=== PATIENT | female | born 1975 | race Caucasian/White ===

== ENCOUNTER 2020-01-07 04:46 | Emergency (ER) | payer MEDICARE, MEDICAID, SELFPAY ==
[2020-01-07 04:49] VITALS: BP 147/91; PULSE 68; RESP 20; TEMP 36.3; O2SAT 99
--- NOTE | 2020-01-07 04:55 | W.ED.GENAD ---
Discharge Plan Disposition Patient Disposition: HOME Condition: Good Discharge Details Chief Complaint: DentalOral Clinical Impression: Pain, dental Primary Care Provider: None,None ED Provider: Butch Lamb Home Meds and New Rx's Prescriptions: New penicillin V potassium 500 mg tablet 500 mg PO QID 10 Days Qty: 40 RF: 0 acetaminophen [Mapap Extra Strength] 500 MG tablet 1,000 mg PO Q6H 5 Days Qty: 60 RF: 0 ibuprofen [Motrin IB] 200 MG tablet 600 mg PO Q6H 5 Days Qty: 60 RF: 0 Continued venlafaxine 75 MG tablet 75 mg PO DAILY RF: 0 methylphenidate HCl [Ritalin] 10 MG tablet 10 mg PO BID RF: 0 ibuprofen 600 MG tablet 600 mg PO TID PRN PRN (Reason: Pain) Qty: 20 RF: 0 Discharge Instructions Instructions: Toothache (ED) Additional Instructions: At this time you have a tooth that broke secondary to an internal infection in the tooth. Please take the antibiotic as directed. Please take Tylenol and Motrin [id number] every 6 hours as prescribed to help with the inflammation. Please follow-up with a dentist as soon as possible to have the tooth pulled. If you notice any worsening of your symptoms, or any new symptoms such as vomiting, diarrhea, fever, chills, shortness of breath, chest pain, numbness, weakness, or fainting , please return immediately to the emergency department for reevaluation. Please follow up with your primary care provider as soon as possible for reassessment and reevaluation. As always, it was a pleasure participating in your medical care today. Medical Decision Making 44-year-old female presents for right lower dental pain. Patient states that she woke up and had significant pain in her right lower posterior molar. She grinds in her sleep and attributes it to fracturing her tooth in her sleep. She denies fever chills difficulty swallowing. No other complaints at this time. Patient was given a dental block in the right posterior space, she had good resolution of her symptoms. Will give penicillin for home antibiotic treatment, recommend Tylenol Motrin for close dental follow-up. Given dental list. I have extensively reviewed the treatment plan and discharge instructions with the patient. I have addressed all patient concerns at this time. The patient was made aware of what symptoms to monitor for that would warrant a return to the emergency department. Discussed the plan with the patient, they demonstrate verbal understanding and agreement with our assessment and plan at this time. HPI General Date/Time Provider Initiated Documentation: 01/07/20 04:47. HPI Narrative: 44-year-old female presents for right lower dental pain. Patient states that she woke up and had significant pain in her right lower posterior molar. She grinds in her sleep and attributes it to fracturing her tooth in her sleep. She denies fever chills difficulty swallowing. No other complaints at this time. Related Data Home Medications Medication Instructions Recorded Confirmed methylphenidate HCl [Ritalin] 10 mg PO BID 08/16/14 01/07/20 venlafaxine 75 mg PO DAILY 08/16/14 01/07/20 ibuprofen 600 mg PO TID PRN PRN #20 tablet 11/10/14 01/07/20 acetaminophen [Mapap Extra 1,000 mg PO Q6H 5 Days #60 tab 01/07/20 Strength] ibuprofen [Motrin Ib] 600 mg PO Q6H 5 Days #60 tab 01/07/20 penicillin V potassium 500 mg PO QID 10 Days #40 tab 01/07/20 Previous Rx's Medication Instructions Recorded ibuprofen 600 mg PO TID PRN PRN #20 tablet 11/10/14 acetaminophen [Mapap Extra 1,000 mg PO Q6H 5 Days #60 tab 01/07/20 Strength] ibuprofen [Motrin Ib] 600 mg PO Q6H 5 Days #60 tab 01/07/20 penicillin V potassium 500 mg PO QID 10 Days #40 tab 01/07/20 Allergies Allergy/AdvReac Type Severity Reaction Status Date / Time No Known Allergies Allergy Unverified 01/07/20 04:51 General Stated Complaint: DentalOral DREA: 4 Review of Systems All systems reviewed & are unremarkable except as noted in HPI and below PFSH Social History Smoking/Tobacco Use Status: Current every day Drug use: Never Do you feel safe at home: Yes Do you feel safe in your relationship?: Yes Exam Narrative Exam Narrative: 1.Const: Well-nourished, Well-developed, appearing stated age 2.Eyes: PERRL, no conjunctival injection, and symmetrical lids. 3.ENT: Atraumatic external nose and ears. Moist MM. Neck: Symmetric, trachea midline, No thyromegaly. Fractured right posterior lower molar, evidence of notable dental carry inside the tooth. No periapical abscess 4.CVS: +S1/S2, No murmurs or gallops. Peripheral pulses 2+ and equal in all extremities. Brisk capillary refill in all extremities. 5.RESP: Unlabored respiratory effort. Clear to auscultation bilaterally. No wheezes rales or rhonchi 6.GI: Soft, Nontender/Nondistended, No hepatosplenomegaly. No guarding or rebound. 7.MSK: Normocephalic/Atraumatic, Extremities w/o deformity or ttp No cyanosis or clubbing, Normal movement of all extremities 8.Skin: Warm, Dry. No rashes or lesions. 9.Neuro: primary counselor II-XII grossly intact. Sensation grossly intact, no focal neurologic deficits. 10.Psych: (AAO) x3. Appropriate mood and affect Course Vital Signs Vital signs: Vital Signs Temperature 36.3 C L 01/07/20 04:49 Pulse 68 01/07/20 04:49 Respiratory Rate 20 01/07/20 04:49 Blood Pressure 147/91 H 01/07/20 04:49 Pulse Oximetry 99 01/07/20 04:49 Temperature 36.3 C L 01/07/20 04:49 Temperature Source Temporal Artery Scan 01/07/20 04:49 Pulse 68 01/07/20 04:49 Respiratory Rate 20 01/07/20 04:49 Blood Pressure 147/91 H 01/07/20 04:49 Blood Pressure Position Sitting 01/07/20 04:49 Pulse Oximetry 99 01/07/20 04:49 Oxygen Delivery Method Room Air 01/07/20 04:49 Oxygen Flow Rate 0 01/07/20 04:49 Pain Level 10 01/07/20 04:49 Procedures Nerve Block Nerve Block 1: Time out performed: Yes Local Anesthetic: Bupivicaine 0.5% Amount of anesthesia used (mL): 7 Side: right Intraoral Nerve Block: inferior alveolar Procedure Successful: Yes Patient Tolerated Procedure: well Complications: none
[2020-01-07 04:59] VITALS: BP 147/91; PULSE 68; RESP 20; TEMP 36.3; O2SAT 99
[2020-01-07] MEDS: Bupivacaine 0.5% Pres-Free 30 ML VIAL (05:03)
== END 2020-01-07 05:00 | disposition home or self-care (01) ==
LOC: ER 05:17
PROVIDERS: Emergency Provider Student in an Organized Health Care Education/Training Program
DX: R68.84 Jaw pain (principal); K04.7 Periapical abscess without sinus
CPT/HCPCS: 99283

== ENCOUNTER 2020-11-30 09:30 | Emergency (ER) | payer MEDICARE, MEDICAID, SELFPAY ==
[2020-11-30 09:34] VITALS: BP 140/85; PULSE 94; RESP 16; TEMP 36.5; O2SAT 99
--- NOTE | 2020-11-30 09:34 | W.ED.GENAD ---
Discharge Plan Disposition Patient Disposition: HOME Condition: Stable Discharge Details Clinical Impression: Sciatica of left side Primary Care Provider: None,None ED Provider: Claudy Gifford Home Meds and New Rx's Prescriptions: New ibuprofen 800 mg tablet 800 mg PO TID PRNQty: 20 RF: 0 Continued venlafaxine 75 MG tablet 75 mg PO DAILY RF: 0 methylphenidate HCl [Ritalin] 10 MG tablet 10 mg PO BID RF: 0 olanzapine 5 mg tablet 5 mg PO DAILY RF: 0 Discontinued ibuprofen 600 MG tablet 600 mg PO TID PRN PRN (Reason: Pain) Qty: 20 RF: 0 Discharge Instructions Instructions: Sciatica (ED) Additional Instructions: At this time you are given a dose of IM Toradol and I am providing you a prescription for 800 mg of Motrin. Cool and/or warm compresses every 2 hours for 20 minutes. Gentle stretching as tolerated. Use crutches as needed, advance activity as tolerated. I have also placed you on our care management list to help expedite outpatient primary care establishment and follow-up. Discharge Data Discharge Date/Time-TO BE ENTERED AT DEPARTURE: 11/30/20 10:36 Medical Decision Making 45-year-old female who reports left leg pain, worse with movement or ambulation since Tuesday. She denies any obvious trauma. Clinically she appears well, nontoxic, no acute distress. Examination is not consistent with cellulitis or DVT. She is neurologically intact. I am unable to reproduce discomfort in her thigh or anterior bedolla region with palpation, she describes it as deeper. I am able to elicit point tenderness across her left sciatic. Positive straight leg raise on the left as well. This does appear to be musculoskeletal in nature but given her subjective complaint of increased urination will also obtain urinalysis. Given there was no trauma or any bony point tenderness, I do not see clear location for emergent imaging. Examination is not consistent with DVT, will not pursue ultrasound. Urinalysis reveals trace intact blood 0-2 red and white cells moderate epithelials, culture not indicated. Discussed urinalysis with patient. Discussed plan, will provide IM Toradol and patient would like crutches given ambulation makes the pain worse. We will also place her on the care management list to help expedite outpatient primary care follow-up. Will provide a prescription for 800 mg p.o. Motrin, we discussed cool and/or warm compresses, and gentle stretching. Patient is comfortable with this plan and has no additional questions or concerns. She was encouraged to return to the ER for new or worsening symptoms, otherwise follow-up with primary care at next available appointment. This documentation was generated using [employer] system, please disregard any oddities of phrase or misspellings. Medical Records Medical records reviewed: Yes I reviewed the patient's medical records. Lab Data Lab results reviewed: Yes I reviewed the patient's lab results. Labs: Laboratory Tests Range/Units 11/30/20 10:00 Urine Color (Yellow) Yellow Urine Clarity (Clear) Clear Urine pH (5-8) 6.5 Ur Specific [place] (1.005-1.025) 1.010 Urine Protein (Negative) mg/dL Negative Urine Ketones (Negative) mg/dL Negative Urine Blood (Negative) Trace-intact H Urine Nitrite (Negative) Negative Urine Bilirubin (Negative) Negative Urine Urobilinogen (Up TO 0.2) EU/dL 0.2 Ur Leukocyte Esterase (Negative) Negative Urine RBC (0-2) HPF 0-2 Urine WBC (0-5) HPF 0-2 Ur Epithelial Cells (Negative) HPF Moderate Urine Crystals (Negative) HPF Negative Urine Bacteria (Negative) HPF Rare Urine Casts (Negative) LPF Negative Urine Mucus (Negative) Negative Ur Culture Indicated? No Urine Glucose (Negative) mg/dL Negative HPI General Mode of arrival: ambulatory. Date/Time Provider Initiated Documentation: 11/30/20 09:34. Limitations to Documentation: no limitations. Information obtained by: patient. HPI Narrative: This is a 45-year-old female, denies significant past medical history, presenting complaining of left leg pain that began on Tuesday upon waking. She denies any recent illness or trauma. Reports that she had sciatica on the right but it seemed to stem higher in her back then this does. Patient denies fever, abdominal pain, nausea, vomiting, IV drug use, dysuria, hematuria, diarrhea, numbness, tingling, weakness. Patient reports that lying flat is the most comfortable position, any movement or bearing of weight increases her discomfort. She does state that may be she has been urinating slightly more than usual. She states the pain stems from the base of her buttocks and is in the posterior upper leg but then wraps around her knee and goes down the front of her leg. She denies any redness, swelling, pain in her calf. She denies shortness of breath or chest pain. She tells me that her primary care provider has retired and she currently does not have a primary care doctor. Related Data Home Medications Medication Instructions Recorded Confirmed methylphenidate HCl [Ritalin] 10 mg PO BID 08/16/14 01/07/20 venlafaxine 75 mg PO DAILY 08/16/14 11/30/20 ibuprofen 800 mg PO TID PRN #20 tab 11/30/20 olanzapine 5 mg PO DAILY 11/30/20 11/30/20 Previous Rx's Medication Instructions Recorded ibuprofen 800 mg PO TID PRN #20 tab 11/30/20 Allergies Allergy/AdvReac Type Severity Reaction Status Date / Time No Known Allergies Allergy Unverified 11/30/20 09:39 General DREA: 4 Review of Systems Constitutional Constitutional: Denies fever(s) and Denies weakness Cardiovascular Cardiovascular: Denies chest pain and Denies dyspnea Respiratory Respiratory: Denies dyspnea Genitourinary Genitourinary: Denies hematuria and Denies dysuria Musculoskeletal Musculoskeletal: Denies back pain, Denies numbness and Denies tingling Integumentary/Breasts Skin/Breast: Denies rash Neurologic Neurologic: Denies numbness, Denies tingling and Denies weakness [facility] Social History Smoking/Tobacco Use Status: Current every day Tobacco Type: cigarettes Smoking risk assessment performed?: Yes Alcohol Intake: never Drug use: Never Do you feel safe at home: Yes Do you feel safe in your relationship?: Yes Exam Const General: cooperative, healthy appearing, comfortable and no acute distress Orientation: alert and awake [facility] Head: normal to inspection, normocephalic and atraumatic Eyes General: appearance normal, both eyes and all related structures Conjunctivae: conjunctivae normal Neck Neck: normal visual inspection, full ROM, trachea midline and supple Resp Effort & Inspection: normal respiratory effort and able to speak in complete sentences Auscultation: clear to auscultation bilaterally Cardio Rate: regular rate Rhythm: regular rhythm GI Palpation: soft and nontender Back/Spine/Pelvis Back: no CVA tenderness and No back tenderness Thoracic/Lumbar Spine: straight leg raise positive (Left 5 degrees, weight negative) Pelvis: no pain with anterior-posterior compression, pain with lateral compression (Mild discomfort with lateral compression) and sciatic notch tenderness on the left Skin Other: Psoriatic plaque over the left anterior knee and left anterior tib-fib region. Chronic per patient Neuro General: patient alert, patient awake, moves all extremities and no focal motor deficits Cognition: normal cognition Speech: speech normal Gait: antalgic (Slightly) Motor: muscle tone normal throughout and strength 5/5 throughout Sensory Exam: no sensory deficits noted Extrem General: normal to inspection, full ROM and capillary refill normal Left lower extremity: normal to inspection, full ROM and normal capillary refill Psych Appearance: grossly normal Mental Status: mental status grossly normal
[2020-11-30 10:07] LABS: Bilirubin Negative (Negative); Blood Trace-intact (Negative); Clarity Clear (Clear); Glucose Negative (Negative); Ketones Negative (Negative); Leukocyte Esterase Negative (Negative); Nitrite Negative (Negative); Urobilinogen 0.2 EU/dL (Up TO 0.2); pH 6.5 (5-8)
[2020-11-30] MEDS: Ketorolac 60 MG/2 ML VIAL IM (10:17)
[2020-11-30 10:22] LABS: Bacteria Rare HPF (Negative); C & S Indicated? No; Casts Negative LPF (Negative); Crystals Negative HPF (Negative); Epithelial Cells Moderate HPF (Negative); Mucus Negative (Negative); RBC 0-2 HPF (0-2); WBC 0-2 HPF (0-5)
--- NOTE | 2020-11-30 10:42 | NUR.NOTE ---
Nursing Note: Referral given to Care Management to establish care/sciatica within 1 week with a PCP. Giselle Be
== END 2020-11-30 10:36 | disposition home or self-care (01) ==
PROVIDERS: Emergency Provider Physician Assistant
DX: M54.32 Sciatica, left side (principal); R35.0 Frequency of micturition
CPT/HCPCS: 96372; 99284; 81003; 81015; J1885

== ENCOUNTER 2022-01-26 02:23 | Outpatient (CLI) | payer MEDICARE, MEDICAID, SELFPAY ==
[2022-01-26 16:56] LABS: HCT 41.8 % (36.0-46.0); HGB 14.4 g/dL (11.2-15.7); MCHC 34.4 % (32.0-36.0); MCV 90 fL (80-95); RBC 4.64 10^6/uL (3.93-5.22); RDW 14.1 % (11.7-14.6); RDW-SD 46.5 fL; WBC 8.27 10^3/uL (4.4-10.8)
[2022-01-26 17:00] LABS: BUN 16 mg/dL (7-18); CREATININE 1.1 mg/dL (0.55-1.02); Calcium 8.9 mg/dL (8.5-10.1); Calculated LDL 191 mg/dL (<100); Chloride 104 mmol/L (98-107); Cholesterol 242 mg/dL (<200); Estimated GFR 53.96 (mL/min/1.73m2); Glucose 96 mg/dL (74-106); HDL Cholesterol 35 mg/dL (40-60); Potassium 4.4 mmol/L (3.5-5.1); Sodium 140 mmol/L (136-145); Triglyceride 83 mg/dL (<150)
== END 2022-01-26 02:24 | disposition home or self-care (01) ==
LOC: DI 02:23 → NCHCN 15:45
PROVIDERS: Visit Provider Physician Assistant
DX: F39 Unspecified mood [affective] disorder (principal)
CPT/HCPCS: 80048; 80061; 85027

== ENCOUNTER 2022-02-10 11:44 | Outpatient (REF) | payer MEDICARE, MEDICAID, SELFPAY ==
--- NOTE | 2022-02-10 10:45 | PAPFT_PTH ---
PATIENT: Lore Sheikh LOC: [facility]#:[id number] AGE/SX: 46/F ROOM: RE02/10/[address]: Jong Ramírez : 1975 BED: DIS: 02/10/2022 SPEC #: [id number] RECD: 02/10/22 17:24 STATUS: MANNY REQ #: [id number] BEVERLY: 02/10/22 10:[address]: Jong Ramírez DEPT: [facility] Cytology RECD BY: Brittany Olson Tissues: 1 - CX/ENDOCX FOR PAP SMEARS Procedures: PAP THIN PREP/UVM Screening HPV DNA PROBE Comments: [id number] (CHLAMYDIA/GC)
[2022-02-11 15:26] LABS: Chlamydia Result Negative (Negative); GC Result Negative (Negative)
== END 2022-02-10 11:45 | disposition home or self-care (01) ==
LOC: NCHCN 11:44
PROVIDERS: PCP Physician Assistant; Visit Provider Physician Assistant
DX: Z11.51 Encounter for screening for human papillomavirus (HPV); Z01.419 Encounter for gynecological examination (general) (routine) without abnormal findings; N76.0 Acute vaginitis
CPT/HCPCS: 87491; 87591; 88142; 87624

== ENCOUNTER → 2023-07-15 10:52 | Outpatient (BNVA) | payer MEDICARE, MEDICAID, SELFPAY | PROVIDERS: PCP Physician Assistant; Referring Provider Physician Assistant; Visit Provider Surgery | DX: Z12.11 Encounter for screening for malignant neoplasm of colon (principal) ==

== ENCOUNTER 2024-12-26 02:01 | Outpatient (CLI) | payer MEDICARE, MEDICAID, SELFPAY ==
--- NOTE | 2024-12-26 08:57 | DI.MAMMO_ITS ---
Exam(s) MAMMO SCREENING EXAM: MAMMO SCREENING CLINICAL HISTORY: SCREENING Z12.31 TECHNIQUE: Bilateral full field digital CC and MLO mammographic images were obtained with 3D tomosynthesis and utilizing computer aided detection (CAD). COMPARISON: This is a baseline examination. FINDINGS: Masses/Architectural Distortion: There are no areas of architectural distortion. There are few areas of breast asymmetry in both the left and right breast posteriorly, best appreciated on the craniocaudad views. These area should be further evaluated with spot compression views. Ultrasound may be indicated at that time. Microcalcifications: No suspicious pleomorphic-type are seen. Skin Thickening/Nipple Retraction: None. IMPRESSION: 1. Asymmetric breast tissue in the posterior aspects of both right and left breasts. 2. These area should be evaluated with spot compression views. Ultrasound may be indicated at that time. BI-RADS Category 0 - Incomplete: Need additional imaging evaluation Breast Density - Category B - There are scattered areas of fibroglandular density. Breast density Category C or D implies that the patient has dense breast tissue. Dense breast tissue can make it harder to find cancer on a mammogram. Dense breast tissue is also associated with an increased risk of breast cancer. This information about the result of the mammogram report was provided to the patient to raise their awareness. Use this report when you speak with the patient about their risks for breast cancer, which includes their family history. At that time, you may recommend additional screening tests (Ultrasound or MRI) as these tests may add significant information. A negative radiographic report should not delay biopsy if a dominant or clinically suspicious mass is present. Up to ten percent of cancers are not identified on mammography. A negative report may reinforce clinical impression. Adenosis and dense breasts may obscure an underlying neoplasm. False positive reports average 6 to 10%. Patient will receive a letter notifying them of these results.
== END 2024-12-26 02:21 ==
LOC: DI 02:01
PROVIDERS: PCP Physician Assistant; Visit Provider Physician Assistant
DX: Z12.31 Encounter for screening mammogram for malignant neoplasm of breast (principal); R92.323 Mammographic fibroglandular density, bilateral breasts
CPT/HCPCS: 77063; 77067

== ENCOUNTER 2025-01-22 01:30 | Outpatient (CLI) | payer MEDICARE, MEDICAID, SELFPAY ==
--- NOTE | 2025-01-22 09:08 | DI.MAMMO_ITS ---
Exam(s) US BREAST LT COMPLETE US BREAST RT COMPLETE MG MAMMO SCREEN CALL BACK BI EXAM: MG MAMMO SCREEN CALL BACK BI AND BILATERAL COMPLETE BREAST ULTRASOUND CLINICAL HISTORY: F/U MAMMO, BILAT ASYMMETRIC BREAST TISSUE,R92.8. TECHNIQUE: BILATERAL spot mammographic images obtained with 3D tomosynthesisand utilizing computer aided detection (CAD). . Complete BILATERAL breast Ultrasound was also performed, including all 4 quadrants, the retroareolar region, and the ipsilateral axilla. COMPARISON: Prior mammograms were reviewed. This additional imaging was performed due to findings described on the recent BASELINE screening mammogram of 12/26/2024. FINDINGS: DIAGNOSTIC MAMMOGRAM: Additional mammographic views performed todaydo not dissipate the previously described bilateral findings. However, they appear less concerning on the spot compression views. COMPLETE BILATERAL BREAST ULTRASOUND: Ultrasound performed today reveals no evidence of solid or significant cystic lesions in all 4 quadrants of both breasts. This implies that the asymmetric densities in both breasts are most probably benign findings. Scanning of the ipsilateral axilla reveals no significant adenopathy. IMPRESSION: 1. There are no focal ultrasound findings to correspond to the asymmetric densities described on the recent baseline mammogram of 12/26/2024. 2. Appropriate follow-up, as discussed by myself with the patient today, is to repeat the bilateral mammogram in 6 months to ensure stability (the screening mammogram on 12/26/2024 was 1st-baseline mammogram) The patient was informed of these findings and recommendations by myself prior to leaving the department today. BI-RADS Category 3 - 6 month - Probably Benign Finding: Recommend follow-up mammography in 6 months Breast Density - Category B - There are scattered areas of fibroglandular density. Breast density Category C or D implies that the patient has dense breast tissue. Dense breast tissue can make it harder to find cancer on a mammogram. Dense breast tissue is also associated with an increased risk of breast cancer. This information about the result of the mammogram report was provided to the patient to raise their awareness. Use this report when you speak with the patient about their risks for breast cancer, which includes their family history. At that time, you may recommend additional screening tests (Ultrasound or MRI) as these tests may add significant information. A negative radiographic report should not delay biopsy if a dominant or clinically suspicious mass is present. Up to ten percent of cancers are not identified on mammography. A negative report may reinforce clinical impression. Adenosis and dense breasts may obscure an underlying neoplasm. False positive reports average 6 to 10%. Patient will receive a letter notifying them of these results.
== END 2025-01-22 01:50 ==
PROVIDERS: PCP Physician Assistant; Visit Provider Physician Assistant
DX: Z12.31 Encounter for screening mammogram for malignant neoplasm of breast (principal); R92.8 Other abnormal and inconclusive findings on diagnostic imaging of breast
CPT/HCPCS: 76642; 77063; 77067

== ENCOUNTER 2025-05-17 12:08 | Outpatient (REF) | payer MEDICARE, MEDICAID, SELFPAY ==
[2025-05-17 15:51] LABS: Hemoglobin A1C 5.3 % (<5.7)
[2025-05-17 15:54] LABS: ALT 11 U/L (10-49); AST 12 U/L (<34); Albumin 4.0 g/dL (3.2-5.0); Alkaline Phosphatase 91 U/L (46-116); Anion Gap 6.8 mmol/L (3-11); BUN 13 mg/dL (9-23); Bilirubin, Total 0.3 mg/dL (0.2-1.2); CO2 28.2 mmol/L (20.0-31.0); Calcium 9.0 mg/dL (8.3-10.6); Chloride 108 mmol/L (98-107); Cholesterol 217 mg/dL (<200); Glucose 74 mg/dL (74-106); HDL Cholesterol 43 mg/dL (>40); Potassium 4.3 mmol/L (3.5-5.1); Sodium 143 mmol/L (136-145); Total Protein 6.6 g/dL (5.7-8.2)
== END 2025-05-17 12:09 | disposition home or self-care (01) ==
LOC: NCHCN 12:08
PROVIDERS: PCP Physician Assistant; Visit Provider Physician Assistant
DX: E78.5 Hyperlipidemia, unspecified (principal); Z13.1 Encounter for screening for diabetes mellitus
CPT/HCPCS: 80053; 80061; 83036